=== PATIENT | female | born 1965 | race Caucasian/White ===

== ENCOUNTER → 2021-07-02 | Outpatient (CLI) | payer OTHER ==
[~2021-07-02] MED LIST: COZAAR25 MG PO; HYDROCODON-ACE1 EAC4 PO; IBU600 MG PO
[2021-07-02 11:22] LABS: RED BLOOD COUNT 4.87 M/UL (4.00-5.10)
[2021-07-02 11:23] LABS: BUN/CREATININE RATIO 12 (0-10)
== END ==
LOC: OPSV2 09:30
PROVIDERS: Obstetrics & Gynecology
DX: Z01.812 Encounter for preprocedural laboratory examination (principal); N92.0 Excessive and frequent menstruation with regular cycle
CPT/HCPCS: 36415; 80053; 81001; 85025

== ENCOUNTER → 2021-07-03 | Day surgery (SDC) | payer OTHER | END | disposition home or self-care (01) | LOC: OR 05:34 | DX: N84.0 Polyp of corpus uteri (principal); D50.9 Iron deficiency anemia, unspecified; N88.3 Incompetence of cervix uteri; I10 Essential (primary) hypertension; Z20.822 Contact with and (suspected) exposure to COVID-19 | CPT/HCPCS: 93005; J1100; J1885; J2001; J2250; J2405; J2704; J2795; J3010; J7030; J7120; U0002 ==